=== PATIENT | male | born 1955 | race Two or more races ===

== ENCOUNTER 2021-05-15 18:12 | Emergency (ER) | payer SELFPAY ==
--- NOTE | 2021-05-15 18:53 | EDM.PDOC ---
<Jose M Rizo - Last Filed: 05/15/21 18:53> ED HPI GENERAL MEDICAL PROBLEM - General Chief Complaint: Fever Stated Complaint: FEVER Time Seen by Provider: 05/15/21 18:16 - History of Present Illness INITIAL COMMENTS - FREE TEXT/NARRATIVE: CHIEF COMPLAINT(S): Fever HISTORY OF PRESENT ILLNESS: This is a 66-year-old man with a past medical history of hypertension and hyperlipidemia who comes to the emergency department with a chief complaint of fever. The patient presents with daughter at bedside. The patient is from [place]. She states for the last 4 days he has been experiencing a fever with the last 1 being 104. She states they have been giving Tylenol and it does seem to calm down. She states that when the Tylenol has slowed down after 6 hours that he does get the fever again and chills. The patient denies any chest pain, shortness of breath, abdominal pain, nausea or vomiting. He denies any headache, blurry vision, ear pain, sore throat but states he does have some nasal congestion. He did have his first coronavirus vaccine approximately 10 days ago. He denies any lower extremity edema. He denies any prior history of DVT or PE. He states that he does have a history of urinary tract infection and kidney disease however he is not experiencing any symptoms similar to last time. He denies any dysuria, hematuria. He denies any penile discharge or testicular pain. REVIEW OF SYSTEMS: Constitutional: Positive for fever and chills Eyes: Denies eye pain Ears, Nose, Mouth, & Throat: Positive for sinus congestion. Denies earache, sore throat Cardiovascular: Denies chest pain Respiratory: Denies shortness of breath Gastrointestinal: Denies abdominal pain, nausea, vomiting, diarrhea, hematochezia. Genitourinary: Denies hematuria dysuria, penile discharge, testicular pain Skin:Denies a rash MSK: Denies joint pain Neurological: Denies blurred vision, numbness, tingling, weakness Psychiatric: Denies depression PAST MEDICAL HISTORY: As per history of present illness and as reviewed below otherwise noncontributory. SURGICAL HISTORY: As per history of present illness and as reviewed below otherwise noncontributory. SOCIAL HISTORY: As per history of present illness and as reviewed below otherwise noncontributory. FAMILY HISTORY: As per history of present illness and as reviewed below otherwise noncontributory. EXAMINATION OF ORGAN SYSTEMS/BODY AREAS: Constitutional: Blood pressure is 127/76, heart rate 7087, respiratory rate 18 with an oxygen saturation 96% on room air. Temperature 37.8 orally General: Overall well-appearing elderly man who is in no acute distress Psychiatric: Appropriate mood and affect. Eyes: No scleral icterus or conjunctival erythema ENMT: Moist mucous membranes. No pharyngeal erythema bilateral tympanic membranes without any erythema or bulging. Bilateral nasal turbinates clear. There is no tonsillar exudates or swelling. No stridor. Cardiovascular: Regular, rate, and rhythm. No gallops, murmurs, or rubs. B ilateral upper extremity pulses symmetric and intact. No peripheral edema. No JVD. Respiratory: Lungs clear to auscultation bilaterally. No wheezes, rales, or rhonchi. Gastrointestinal: Soft, non-tender, non-distended. Normoactive bowel sounds Genitourinary: No suprapubic tenderness Musculoskeletal: Normal range of motion. Skin: No lesions or abrasions. Neurological: Alert, GCS 15 MEDICAL DECISION MAKING AND COURSE IN THE ED WITH INTERPRETATION/REVIEW OF DIAGNOSTIC STUDIES: This is a 66-year-old man with a past medical history of hypertension hyperlipidemia who comes to the emergency department with fever that is responding to Tylenol with some sinus congestion who overall appears well and has normal vital signs. At this time it is uncertain as to what is causing the patient's fever however we will obtain work-up including CBC, CMP, magnesium. We will swab the patient for Covid, flu and RSV. We will obtain a urinalysis given his history of urinary tract infection and obtain a chest x-ray to evaluate for pneumonia. Patient is currently denying any pain and overall appears well so we will hold off on medication at this time. At the time of signout the patient's labs, x-ray and urinalysis were pending. Final disposition pending labs and further work-up. DISPOSITION: [facility] CONDITION: Fair PROCEDURES: None FINAL IMPRESSION(S)/DIAGNOSES: 1. Acute fever Jose M Rizo M.D. - Related Data Allergies Allergy/AdvReac Type Severity Reaction Status Date / Time No Known Allergies Allergy Verified 05/15/21 18:33 Home Meds: Home Meds Aspirin 81 mg PO DAILY 05/15/21 [History] Enalapril Maleate 10 mg PO DAILY 05/15/21 [History] Ibuprofen [Motrin] 400 mg PO Q6H PRN #28 tab 05/15/21 [Rx] Pantoprazole Sodium [Protonix] 40 mg PO DAILY #14 tablet. 05/15/21 [Rx] atorvaSTATin Calcium [Lipitor] 40 mg PO DAILY 05/15/21 [History] Past Medical History Cardiovascular History: Reports: High Cholesterol, Hypertension - Infectious Disease History Infectious Disease History: Reports: None Social & Family History - Family History Family Medical History: No Pertinent Family History - Tobacco Use Tobacco Use Status *Q: Never Tobacco User - Caffeine Use Caffeine Use: Reports: None - Recreational Drug Use Recreational Drug Use: No ED ROS GENERAL - Review of Systems Review Of Systems: See Below ED EXAM, GENERAL - Physical Exam Exam: See Below Departure - Departure Disposition: Home, Self-Care 01 Clinical Impression: COVID-19 - Discharge Information Prescriptions: Pantoprazole Sodium [Protonix] 40 mg PO DAILY #14 tablet. Instructions: COVID-19: How to Protect Yourself and Others - CDC, COVID-19 Frequently Asked Questions Referrals: PCP,None [Primary Care Provider] - Forms: ED Department Discharge Additional Instructions: Your COVID-19 test is positive. The rest of your lab work looks good. I would recommend taking Tylenol (acetaminophen) 1000mg every 4 hours as needed to help control your fever. This is safe to take with Motrin (ibuprofen) 400 mg every 6 hours as needed to help control your fever and body aches. Motrin was sent to your pharmacy. I also sent a prescription for a medication called Protonix which can help with the stomach pains that you are having likely secondary to the medication use and Covid infection. If you develop worsening shortness of breath or if your oxygen saturations are persistently below 90% then you should come back to the hospital for reassess ment. You should quarantine for the next 6 days (total of 10 days from symptom onset) as long as your fever has broken by the end of this time. Connolly prueba de COVID-19 es positiva. El jacqueline de connolly trabajo de laboratorio se ve jose. Recomendara brenda 1000 mg de Tylenol (acetaminofn) cada 4 horas segn sea necesario para ayudar a controlar la fiebre. Es seguro tomarlo con Motrin (ibuprofeno) 400 mg cada 6 horas segn sea necesario para ayudar a controlar la fiebre y los ian corporales. Motrin fue enviado a connolly farmacia. Tambin envi puma receta para un medicamento llamado Protonix que puede ayudar con los ian de estmago que probablemente tiene karol consecuencia del uso de medicamentos y la infeccin por Covid. Si presenta un empeoramiento de la dificultad para respirar o si naheed saturaciones de oxgeno son persistentemente por debajo del 90%, debe regresar al hospital para puma nueva evaluacin. Debe ponerse en cuarentena lj los prximos 6 flores (un total de 10 flores desde el inicio de los sntomas) siempre que connolly fiebre haya desaparecido al final de shabnam tiempo. ([place] se tradujo con el traductor de [employer] y puede contener errores, lo siento!) You should still get the second dose of Covid vaccination as long as you are well by the time it is scheduled. If you are still feeling sick then consult with a physician before getting the second dose of vaccination. The fact that you have the first dose of vaccination will help your body fight this infection. The following information is given to patients seen in the emergency department who are being discharged to home. This information is to outline your options for follow-up care. We provide all patients seen in our emergency department wit h a follow-up referral. The need for follow-up, as well as the timing and circumstances, are variable depending upon the specifics of your emergency department visit. If you don't have a primary care physician on staff, we will provide you with a referral. We always advise you to contact your personal physician following an emergency department visit to inform them of the circumstance of the visit and for follow-up with them and/or the need for any referrals to a consulting specialist. The emergency department will also refer you to a specialist when appropriate. This referral assures that you have the opportunity for follow-up care with a specialist. All of these measure are taken in an effort to provide you with optimal care, which includes your follow-up. Under all circumstances we always encourage you to contact your private physician who remains a resource for coordinating your care. When calling for follow-up care, please make the office aware that this follow-up is from your recent emergency room visit. If for any reason you are refused follow-up, please contact the [facility] Emergency Department at and asked to speak to the emergency department charge nurse. Please follow up with your primary care physician. If you do not have a primary care physician, see below: [facility] [address] [place] [id number] [facility] [address] [place] [id number] [facility] [address] [place] [id number] Sepsis Event Note (ED) - Evaluation Sepsis Screening Result: No Definite Risk <Nick Petersen - Last Filed: 05/15/21 19:52> Course - Vital Signs Last Recorded V/S: Last Vital Signs Temp 100.1 F 05/15/21 18:27 Pulse 87 05/15/21 18:27 Resp 18 05/15/21 18:27 BP 127/76 05/15/21 18:27 Pulse Ox 96 05/15/21 18:27 - Orders/Labs/Meds Labs: Laboratory Tests 05/15/21 05/15/21 05/15/21 Range/Units 18:37 18:37 18:40 WBC 3.57 L (4.0-11.0) K/uL RBC 4.52 (4.50-5.90) M/uL Hgb 13.5 (13.0-17.0) g/dL Hct 39.0 (38.0-50.0) % MCV 86.3 (80.0-98.0) fL MCH 29.9 (27.0-32.0) pg MCHC 34.6 (31.0-37.0) g/dL RDW Std Deviation 41.2 (28.0-62.0) fl RDW Coeff of Thien 13 (11.0-15.0) % Plt Count 134 L (150-400) K/uL MPV 10.10 (7.40-12.00) fL Neut % (Auto) 68.9 (48.0-80.0) % Lymph % (Auto) 22.7 (16.0-40.0) % [place] % (Auto) 7.8 (0.0-15.0) % Eos % (Auto) 0.3 (0.0-7.0) % Baso % (Auto) 0.3 (0.0-1.5) % Neut # (Auto) 2.5 (1.4-5.7) K/uL Lymph # (Auto) 0.8 (0.6-2.4) K/uL [place] # (Auto) 0.3 (0.0-0.8) K/uL Eos # (Auto) 0.0 (0.0-0.7) K/uL Baso # (Auto) 0.0 (0.0-0.1) K/uL Nucleated RBC % 0.0 /100WBC Nucleated RBCs # 0 K/uL Sodium 142 (136-148) mmol/L Potassium 3.9 (3.5-5.1) mmol/L Chloride 105 (98-107) mmol/L Carbon Dioxide 24.1 (21.0-32.0) mmol/L BUN 25 H (7.0-18.0) mg/dL Creatinine 1.5 H (0.8-1.3) mg/dL Est Cr Clr Drug Dosing 49.99 mL/min Estimated GFR (MDRD) 46.5 ml/min Glucose 113 H (74-106) mg/dL Calcium 8.4 L (8.5-10.1) mg/dL Magnesium 1.9 (1.8-2.4) mg/dL Total Bilirubin 0.3 (0.2-1.0) mg/dL AST 38 H (15-37) IU/L ALT 50 (14-63) IU/L Alkaline Phosphatase 68 (46-116) U/L Total Protein 7.6 (6.4-8.2) g/dL Albumin 3.6 (3.4-5.0) g/dL Globulin 4.0 (2.6-4.0) g/dL Albumin/Globulin Ratio 0.9 (0.9-1.6) Urine Color YELLOW Urine Appearance CLEAR Urine pH 5.5 (5.0-8.0) Ur Specific [place] >= 1.030 (1.001-1.035) Urine Protein TRACE H (NEGATIVE) mg/dL Urine Glucose (UA) NEGATIVE (NEGATIVE) mg/dL Urine Ketones NEGATIVE (NEGATIVE) mg/dL Urine Occult Blood NEGATIVE (NEGATIVE) Urine Nitrite NEGATIVE (NEGATIVE) Urine Bilirubin NEGATIVE (NEGATIVE) Urine Urobilinogen 0.2 (<2.0) EU/dL Ur Leukocyte Esterase NEGATIVE (NEGATIVE) U Hyaline Cast (Auto) 0-1 (0-2/LPF) Urine RBC 0-1 (0-2/HPF) Urine WBC 0-2 (0-5/HPF) Ur Epithelial Cells RARE (NONE-FEW) Urine Bacteria RARE (NEGATIVE) Urine Sperm OCCASIONAL (NEGATIVE) Influenza Type A RNA (NEGATIVE) RSV RNA (INAAT) (NEGATIVE) Influenza Type B RNA (NEGATIVE) SARS-CoV-2 RNA (EDITH) (NEGATIVE) 05/15/21 Range/Units 18:50 WBC (4.0-11.0) K/uL RBC (4.50-5.90) M/uL Hgb (13.0-17.0) g/dL Hct (38.0-50.0) % MCV (80.0-98.0) fL MCH (27.0-32.0) pg MCHC (31.0-37.0) g/dL RDW Std Deviation (28.0-62.0) fl RDW Coeff of Thien (11.0-15.0) % Plt Count (150-400) K/uL MPV (7.40-12.00) fL Neut % (Auto) (48.0-80.0) % Lymph % (Auto) (16.0-40.0) % [place] % (Auto) (0.0-15.0) % Eos % (Auto) (0.0-7.0) % Baso % (Auto) (0.0-1.5) % Neut # (Auto) (1.4-5.7) K/uL Lymph # (Auto) (0.6-2.4) K/uL [place] # (Auto) (0.0-0.8) K/uL Eos # (Auto) (0.0-0.7) K/uL Baso # (Auto) (0.0-0.1) K/uL Nucleated RBC % /100WBC Nucleated RBCs # K/uL Sodium (136-148) mmol/L Potassium (3.5-5.1) mmol/L Chloride (98-107) mmol/L Carbon Dioxide (21.0-32.0) mmol/L BUN (7.0-18.0) mg/dL Creatinine (0.8-1.3) mg/dL Est Cr Clr Drug Dosing mL/min Estimated GFR (MDRD) ml/min Glucose (74-106) mg/dL Calcium (8.5-10.1) mg/dL Magnesium (1.8-2.4) mg/dL Total Bilirubin (0.2-1.0) mg/dL AST (15-37) IU/L ALT (14-63) IU/L Alkaline Phosphatase (46-116) U/L Total Protein (6.4-8.2) g/dL Albumin (3.4-5.0) g/dL Globulin (2.6-4.0) g/dL Albumin/Globulin Ratio (0.9-1.6) Urine Color Urine Appearance Urine pH (5.0-8.0) Ur Specific [place] (1.001-1.035) Urine Protein (NEGATIVE) mg/dL Urine Glucose (UA) (NEGATIVE) mg/dL Urine Ketones (NEGATIVE) mg/dL Urine Occult Blood (NEGATIVE) Urine Nitrite (NEGATIVE) Urine Bilirubin (NEGATIVE) Urine Urobilinogen (<2.0) EU/dL Ur Leukocyte Esterase (NEGATIVE) U Hyaline Cast (Auto) (0-2/LPF) Urine RBC (0-2/HPF) Urine WBC (0-5/HPF) Ur Epithelial Cells (NONE-FEW) Urine Bacteria (NEGATIVE) Urine Sperm (NEGATIVE) Influenza Type A RNA NEGATIVE (NEGATIVE) RSV RNA (INAAT) NEGATIVE (NEGATIVE) Influenza Type B RNA NEGATIVE (NEGATIVE) SARS-CoV-2 RNA (EDITH) POSITIVE H (NEGATIVE) - Re-Assessments/Exams Free Text/Narrative Re-Assessment/Exam: 05/15/21 19:46 Patient's COVID-19 test is positive. Patient is complaining of some stomach irritation secondary to the Tylenol and Motrin that has been taking so I will give him a 2-week course of Protonix for GI prophylaxis. Discussed return precautions at length. Departure - Departure Time of Disposition: 19:46 Condition: Good Sepsis Event Note (ED) - Focused Exam Vital Signs: Vital Signs Temp Pulse Resp BP Pulse Ox 05/15/21 18:27 100.1 F 87 18 127/76 96
[2021-05-15 19:04] LABS: CARBON DIOXIDE,CO2 24.1 mmol/L (21.0-32.0); POTASSIUM,K 3.9 mmol/L (3.5-5.1)
--- NOTE | 2021-05-15 19:11 | CR ---
INDICATION: Fever TECHNIQUE: Chest radiograph 1 view COMPARISON: None FINDINGS: Mediastinum: The mediastinum is normal in appearance. The heart silhouette is normal in size and morphology. Lung: Ground-glass opacities are present within the right midlung zone. No sign of pleural effusion seen. No pneumothorax is identified. Bone and Soft tissue: Unremarkable for age. IMPRESSION: 1. Ground-glass opacities are present within the right midlung zone. Clinical correlation is recommended to exclude atypical pneumonia. Dictated by Louie Pickens MD @ 05/15/2021 7:10:14 PM Dictated by: Louie Pickens MD @ 05/15/2021 19:10:18 (Electronically Signed)
[2021-05-15 19:33] LABS: CORONAVIRUS COVID-19 NAA POSITIVE (NEGATIVE); INFLUENZA A NAA NEGATIVE (NEGATIVE); INFLUENZA B NAA NEGATIVE (NEGATIVE); RESPIRATORY SYNCYTIAL VIR NAA NEGATIVE (NEGATIVE)
== END 2021-05-15 19:53 | disposition home or self-care (01) ==
LOC: MW.ED 18:12
DX: U07.1 COVID-19 (principal); I10 Essential (primary) hypertension; E78.5 Hyperlipidemia, unspecified; Z79.899 Other long term (current) drug therapy; Z79.82 Long term (current) use of aspirin
CPT/HCPCS: 0241U; 36415; 71045; 80053; 81001; 83735; 85025; 99283

== ENCOUNTER 2021-05-19 22:18 | Emergency (ER) | payer SELFPAY ==
[2021-05-19] MEDS ORDERED: Sodium Chloride 0.9% 2.5 ML Syringe FLUSH PRN (22:38)
[2021-05-19] MEDS ORDERED: Sodium Chloride 0.9% 10 ML Syringe FLUSH PRN (22:38)
[2021-05-19] MEDS ORDERED: Sodium Chloride 0.9% 1,000 ML IV ONE (22:39)
--- NOTE | 2021-05-19 22:40 | EDM.PDOC ---
ED HPI GENERAL MEDICAL PROBLEM - General Stated Complaint: COVID POSITIVE Time Seen by Provider: 05/19/21 22:40 - History of Present Illness INITIAL COMMENTS - FREE TEXT/NARRATIVE: History of present illness: [] This patient was seen by my partner 15 May 2021. He had suffered 4 days of fever. He was diagnosed with a COVID-19 infection and discharged home. He is from [place] and was here with his daughter. He has increased increasing weakness since he was seen here. He cannot tolerate walking very far before he gets short of breath and feels very tired. His oxygen saturation on their own portable monitor drops to 88 after he has exertion and gets tired. He has no headache and no increased cough but he does have bone pain. Review of systems: As per history of present illness and below otherwise all systems reviewed and negative. Past medical history: As per history of present illness and as reviewed below otherwise noncontributory. Surgical history: As per history of present illness and as reviewed below otherwise noncontribut ory. Social history: No reported history of drug or alcohol abuse. Family history: As per history of present illness and as reviewed below otherwise noncontributory. Physical exam: Constitutional - well developed, well-nourished and in no acute distress HEENT - normocephalic, no evidence of trauma - external nose and mouth normal - no mass in neck and no JVD - mucosae moist EYES - full EOM, PERRL, no icterus - no evidence of inflammation, injection, or drainage Respiratory - no respiratory distress, equal bilateral expansion, lungs clear to auscultation and no abnormal lung sounds Cardiovascular - Regular Rhythm with S1 and S2 appreciated and no murmur, gallop or rub. GI - abdomen soft without distension or organomegaly - normal bowel sounds - no guard or rebound Musculoskeletal no gross deformity of long bones or joints - no tenderness, swelling or edema Neurologic - Alert and oriented times four - CN II-XII grossly intact - motor sensory and coordination symmetrically normal Psychiatric - appropriate mood and affect with normal thought content Hematologic - No petechiae or purpura - mucosa appropriate color and sclera not pale - normal nail bed color and refill Integument - no rash or evidence of trauma - normal turgor Diagnostics: [] Therapeutics: [] Impression: [] Plan: [] Definitive disposition and diagnosis as appropriate pending reevaluation and review of above. - Related Data Allergies Allergy/AdvReac Type Severity Reaction Status Date / Time No Known Allergies Allergy Verified 05/19/21 22:28 Home Meds: Home Meds Aspirin 81 mg PO DAILY 05/15/21 [History] Enalapril Maleate 10 mg PO DAILY 05/15/21 [History] Ibuprofen [Motrin] 400 mg PO Q6H PRN #28 tab 05/15/21 [Rx] Pantoprazole Sodium [Protonix] 40 mg PO DAILY #14 tablet. 05/15/21 [Rx] atorvaSTATin Calcium [Lipitor] 40 mg PO DAILY 05/15/21 [History] Albuterol Sulfate [Albuterol Sulfate HFA] 8.5 gm INH Q4H PRN #1 inhaler 05/20/21 [Rx] predniSONE [Prednisone] 40 mg PO DAILY 7 Days #14 tablet 05/20/21 [Rx] Past Medical History Cardiovascular History: Reports: High Cholesterol, Hypertension - Infectious Disease History Infectious Disease History: Reports: None Social & Family History - Family History Family Medical History: No Pertinent Family History - Tobacco Use Tobacco Use Status *Q: Never Tobacco User - Caffeine Use Caffeine Use: Reports: None - Recreational Drug Use Recreational Drug Use: No ED ROS GENERAL - Review of Systems Review Of Systems: Comprehensive ROS is negative, except as noted in HPI. ED EXAM, GENERAL - Physical Exam Exam: See Below Free Text/Narrative:: My physical exam is in the HPI #1 Interpretation EKG Interpretation Comments: KG sinus rhythm heart rate 71 [place] XIX. RI interval 148 QT duration 463. Baseline wander makes interpretation less than ideal however QRS ST and T are essentially normal no prior for comparison. Impression normal EKG Course - Vital Signs Text/Narrative:: Consultation with my internal medicine doctor reproduction artist we felt the patient did not at this point qualify for a full admission and would probably not improve in 24 hours and be able to go home as an observation. We thought he would benefit from short course of steroids because of his documented 88% saturation at home. We also wanted to initiate bronchodilator treatment and have an antibody infusion in the morning. 00 50 hours patient is improved and saturation 94%. Last Recorded V/S: Last Vital Signs Temp 36.8 C 05/19/21 22:29 Pulse 74 05/20/21 00:36 Resp 20 05/20/21 00:36 BP 159/87 H 05/20/21 00:36 Pulse Ox 94 L 05/20/21 00:36 - Orders/Labs/Meds Orders: Active Orders 24 hr Category Date Time Status EKG 12 Lead [EKG Documentation Completion] [RC] STAT Care 05/19/21 22:52 Active Sodium Chloride 0.9% [Saline Flush] Med 05/19/21 22:38 Active 10 ml FLUSH ASDIRECTED PRN Sodium Chloride 0.9% [Saline Flush] Med 05/19/21 22:38 Active 2.5 ml FLUSH ASDIRECTED PRN Saline Lock Insert [OM.PC] Stat Oth 05/19/21 22:38 Ordered Medication Orders Sodium Chloride (Sodium Chloride 0.9% 10 Ml Syringe) 10 ml FLUSH ASDIRECTED PRN PRN Reason: Keep Vein Open Sodium Chloride (Sodium Chloride 0.9% 2.5 Ml Syringe) 2.5 ml FLUSH ASDIRECTED PRN PRN Reason: Keep Vein Open Labs: Laboratory Tests 05/19/21 05/19/21 05/19/21 Range/Units 22:50 22:50 22:50 WBC 5.92 (4.0-11.0) K/uL RBC 4.17 L (4.50-5.90) M/uL Hgb 12.4 L (13.0-17.0) g/dL Hct 35.9 L (38.0-50.0) % MCV 86.1 (80.0-98.0) fL MCH 29.7 (27.0-32.0) pg MCHC 34.5 (31.0-37.0) g/dL RDW Std Deviation 42.0 (28.0-62.0) fl RDW Coeff of Thien 13 (11.0-15.0) % Plt Count 208 (150-400) K/uL MPV 10.10 (7.40-12.00) fL Neut % (Auto) 79.6 (48.0-80.0) % Lymph % (Auto) 12.8 L (16.0-40.0) % [place] % (Auto) 6.4 (0.0-15.0) % Eos % (Auto) 1.0 (0.0-7.0) % Baso % (Auto) 0.2 (0.0-1.5) % Neut # (Auto) 4.7 (1.4-5.7) K/uL Lymph # (Auto) 0.8 (0.6-2.4) K/uL [place] # (Auto) 0.4 (0.0-0.8) K/uL Eos # (Auto) 0.1 (0.0-0.7) K/uL Baso # (Auto) 0.0 (0.0-0.1) K/uL Nucleated RBC % 0.0 /100WBC Nucleated RBCs # 0 K/uL Sodium 139 (136-148) mmol/L Potassium 3.7 (3.5-5.1) mmol/L Chloride 105 (98-107) mmol/L Carbon Dioxide 19.9 L (21.0-32.0) mmol/L BUN 18 (7.0-18.0) mg/dL Creatinine 1.4 H (0.8-1.3) mg/dL Est Cr Clr Drug Dosing 45.57 mL/min Estimated GFR (MDRD) 50.4 ml/min Glucose 153 H (74-106) mg/dL Calcium 7.9 L (8.5-10.1) mg/dL Magnesium 2.0 (1.8-2.4) mg/dL Total Bilirubin 0.4 (0.2-1.0) mg/dL AST 62 H (15-37) IU/L ALT 59 (14-63) IU/L Alkaline Phosphatase 114 (46-116) U/L Troponin I < 0.050 (0.000-0.056) ng/mL Total Protein 7.0 (6.4-8.2) g/dL Albumin 2.6 L (3.4-5.0) g/dL Globulin 4.4 H (2.6-4.0) g/dL Albumin/Globulin Ratio 0.6 L (0.9-1.6) Meds: Medications Generic Name Dose Route Start Last Admin Trade Name Freq PRN Reason Stop Dose Admin Sodium Chloride 10 ml 05/19/21 22:38 Sodium Chloride 0.9% 10 Ml Syringe FLUSH ASDIRECTED PRN Keep Vein Open Sodium Chloride 2.5 ml 05/19/21 22:38 Sodium Chloride 0.9% 2.5 Ml Syringe FLUSH ASDIRECTED PRN Keep Vein Open Discontinued Medications Generic Name Dose Route Start Last Admin Trade Name Freq PRN Reason Stop Dose Admin Albuterol Confirm 05/20/21 00:17 05/20/21 00:20 Albuterol 8 Gm Inhaler Administered 05/20/21 00:18 2 inh Dose Administration 8 gm INH .STK-MED ONE Sodium Chloride 1,000 mls @ 1,000 mls/hr 05/19/21 22:39 05/19/21 22:52 Normal Saline IV 05/19/21 23:38 1,000 mls/hr .Bolus ONE Administration Prednisone 40 mg 05/20/21 00:13 05/20/21 00:20 Prednisone 20 Mg Tab PO 05/20/21 00:14 40 mg STAT STA Administration Departure - Departure Time of Disposition: 00:50 Disposition: Home, Self-Care 01 Condition: Good Clinical Impression: Pneumonia due to COVID-19 virus - Discharge Information Prescriptions: Albuterol Sulfate [Albuterol Sulfate HFA] 8.5 gm INH Q4H PRN #1 inhaler PRN Reason: Shortness Of Breath predniSONE [Prednisone] 40 mg PO DAILY 7 Days #14 tablet Instructions: COVID-19 Frequently Asked Questions, 10 Things You Can Do to Manage Your COVID-19 Symptoms at Home - [facility] Referrals: PCP,None [Primary Care Provider] - Forms: ED Department Discharge Additional Instructions: Come tomorrow to have the antibody infusion. If you are more short of breath come back and let us check your oxygen. If your oxygen on our monitors maintain below 90% you may qualify for oxygen or need admission. Use inhaler as needed and take the several days of steroids as suggested. That was sent to your pharmacy. [facility] - Primary Care [address] [place] [id number] [id number] The following information is given to patients seen in the emergency department who are being discharged to home. This information is to outline your options for follow-up care. We provide all patients seen in our emergency department with a follow-up referral. The need for follow-up, as well as the timing and circumstances, are variable depending upon the specifics of your emergency department visit. If you don't have a primary care physician on staff, we will provide you with a referral. We always advise you to contact your personal physician following an emergency department visit to inform them of the circumstance of the visit and for follow-up with them and/or the need for any referrals to a consulting specialist. The emergency department will also refer you to a specialist when appropriate. This referral assures that you have the opportunity for follow-up care with a specialist. All of these measure are taken in an effort to provide you with optimal care, which includes your follow-up. Under all circumstances we always encourage you to contact your private physician who remains a resource for coordinating your care. When calling for follow-up care, please make the office aware that this follow-up is from your recent emergency room visit. If for any reason you are refused follow-up, please contact the [facility] Emergency Department at and asked to speak to the emergency department charge nurse. Sepsis Event Note (ED) - Evaluation Sepsis Screening Result: No Definite Risk - Focused Exam Vital Signs: Vital Signs Temp Pulse Resp BP Pulse Ox 05/20/21 00:36 74 20 159/87 H 94 L 05/19/21 23:30 92 20 147/80 H 92 L 05/19/21 22:29 36.8 C 78 19 156/80 H 93 L - My Orders Last 24 Hours: My Active Orders 05/19/21 22:38 Sodium Chloride 0.9% [Saline Flush] 10 ml FLUSH ASDIRECTED PRN Sodium Chloride 0.9% [Saline Flush] 2.5 ml FLUSH ASDIRECTED PRN Saline Lock Insert [OM.PC] Stat 05/19/21 22:52 EKG 12 Lead [EKG Documentation Completion] [RC] STAT - Assessment/Plan Last 24 Hours: My Active Orders 05/19/21 22:38 Sodium Chloride 0.9% [Saline Flush] 10 ml FLUSH ASDIRECTED PRN Sodium Chloride 0.9% [Saline Flush] 2.5 ml FLUSH ASDIRECTED PRN Saline Lock Insert [OM.PC] Stat 05/19/21 22:52 EKG 12 Lead [EKG Documentation Completion] [RC] STAT
[2021-05-19 23:22] LABS: CARBON DIOXIDE,CO2 19.9 mmol/L (21.0-32.0); POTASSIUM,K 3.7 mmol/L (3.5-5.1)
--- NOTE | 2021-05-19 23:51 | CR ---
INDICATION: COVID-19, dyspnea TECHNIQUE: Chest radiograph 1 view COMPARISON: 05/15/2021 FINDINGS: Mediastinum: The mediastinum is normal in appearance. The heart silhouette is normal in size and morphology. Lung: Mild ground-glass opacity is present in the midlung zones and right lung base. No sign of pleural effusion seen. No pneumothorax is identified. Bone and Soft tissue: Unremarkable for age. IMPRESSION: 1. Mild ground-glass opacity is present in the midlung zones and right lung base. Findings may be due to the patient`s COVID-19 infection. Dictated by Louie Pickens MD @ 05/19/2021 11:49:03 PM Dictated by: Louie Pickens MD @ 05/19/2021 23:49:07 (Electronically Signed)
[2021-05-20] MEDS ORDERED: predniSONE 20 MG Tab PO STA (00:13)
[2021-05-20] MEDS ORDERED: Albuterol 8 GM Inhaler INH ONE (00:17)
== END 2021-05-20 01:00 | disposition home or self-care (01) ==
LOC: MW.ED 22:18
DX: U07.1 COVID-19 (principal); J12.82 Pneumonia due to coronavirus disease 2019; E78.00 Pure hypercholesterolemia, unspecified; I10 Essential (primary) hypertension; Z79.899 Other long term (current) drug therapy; Z79.82 Long term (current) use of aspirin
CPT/HCPCS: 36415; 71045; 80053; 83735; 84484; 85025; 93005; 99285; A9270; J7030

== ENCOUNTER 2021-05-24 14:43 | Emergency (ER) | payer SELFPAY ==
[2021-05-24] MEDS ORDERED: Sodium Chloride 0.9% 2.5 ML Syringe FLUSH PRN (15:13)
[2021-05-24] MEDS ORDERED: Sodium Chloride 0.9% 10 ML Syringe FLUSH PRN (15:13)
--- NOTE | 2021-05-24 15:49 | EDM.PDOC ---
ED HPI GENERAL MEDICAL PROBLEM - General Chief Complaint: Respiratory Problem Stated Complaint: SPITTING UP BLOOD WHEN HE COUGH Time Seen by Provider: 05/24/21 15:06 - History of Present Illness INITIAL COMMENTS - FREE TEXT/NARRATIVE: HISTORY AND PHYSICAL: History of present illness: This is a 66-year-old gentleman with a history significant for hypertension, hyperlipidemia, recent diagnosis of Covid approximately 9 days ago with symptom onset approximately 14 days ago, who presents to the ER today secondary to hemoptysis x4 days. Patient's daughter is here assisting with translation reports that while he is sleeping he will sometimes cough and small blood clot will come up that is not the consistency of saliva. Patient reports that at this time he is not coughing up any blood. Patient denies any recent fevers, shakes, chills, nausea, vomiting, diarrhea, dysuria, frequency, urgency. Patient reports he is got generalized weakness, fatigue, shortness of breath since his diagnosis of Covid. Daughter reports that he gets markedly short of breath whenever he walks to the bathroom. She denies any lower extremity edema or asymmetry to his lower extremities. Patient denies any chest pain or abdominal discomfort. Patient reports that he was discharged from the ED approximately 10 days ago with a prescription for prednisone and albuterol MDIs which she is utilizing. Review of systems: As per history of present illness and below otherwise all systems reviewed and negative. Past medical history: As per history of present illness and as reviewed below otherwise noncontributory. Surgical history: As per history of present illness and as reviewed below otherwise noncontributory. Social history: No reported history of drug abuse. Family history: As per history of present illness and as reviewed below otherwise noncontributory. Physical exam: This patient was seen and evaluated during the 2019 SARS-CoV-2 novel coronavirus pandemic period. Community viral transmission is ongoing at time of this encounter and the emergency department is operating under pandemic response procedures. Constitutional: Patient is oriented to person, place, and time. Appears well- developed and well-nourished. No distress. HEENT: Moist mucous membranes Head: Normocephalic and atraumatic Eyes: Right eye exhibits no discharge. Left eye exhibits no discharge. No scleral icterus Neck: Normal range of motion. No tracheal deviation present. Cardiovascular: Normal rate and regular rhythm. Pulmonary: Effort normal, no respiratory distress. Clear without any wheezing rales or rhonchi. Patient without a palpable RV heave or split S2. Patient has no lower extremity edema and has a negative Homans' sign. Abdominal: No distention Musculoskeletal: Normal range of motion Neurologic: Alert and oriented to person, place and time. Skin: [place], warm and dry. Psychiatric: Normal mood and affect. Behavior is normal. Judgment and thought content normal. Nursing note and vital signs have been reviewed Diagnostics: CTA of thorax does not reveal any evidence of PE, AVMs or other bleeding problems. No tumor is identified. Patient does have bilateral increased interstitial markings consistent with Covid Labs within normal limits Therapeutics: Assessment and plan: 66-year-old gentleman who presents ER today secondary hemoptysis. Patient has been monitored here in the ED for approximately 3 hours and has not had any further episodes of hemoptysis here in the ED. A CT scan of the chest was obtained to rule out PE or other bleeding issues such as tumors AVMs or inflammation in the lungs. Patient CTA was unremarkable. Patient's labs are all unremarkable. Patient has been sitting comfortably in bed without any complaints. Patient will be discharged home with instructions to follow-up with a primary care physician. Reassessment at the time of disposition demonstrates that the patient is in no acute distress. The patient has remained stable throughout the entire ED visit and is without objective evidence for acute process requiring urgent intervention or hospitalization. The patient is stable for discharge, counseling is provided as documented above, discussed symptomatic treatment and specific conditions for return. I have spoken with the patient/caregiver and discussed todays findings, in addition to providing specific details for the plan of care. Questions are answered and there is agreement with the plan. Definitive disposition and diagnosis as appropriate pending reevaluation and review of above. - Related Data Allergies Allergy/AdvReac Type Severity Reaction Status Date / Time No Known Allergies Allergy Verified 05/24/21 15:01 Home Meds: Home Meds Aspirin 81 mg PO DAILY 05/15/21 [History] Enalapril Maleate 10 mg PO DAILY 05/15/21 [History] Ibuprofen [Motrin] 400 mg PO Q6H PRN #28 tab 05/15/21 [Rx] Pantoprazole Sodium [Protonix] 40 mg PO DAILY #14 05/15/21 [Rx] atorvaSTATin Calcium [Lipitor] 40 mg PO DAILY 05/15/21 [History] Albuterol Sulfate [Albuterol Sulfate HFA] 8.5 gm INH Q4H PRN #1 inhaler 05/20/21 [Rx] predniSONE [Prednisone] 40 mg PO DAILY 7 Days #14 tablet 05/20/21 [Rx] Past Medical History Cardiovascular History: Reports: High Cholesterol, Hypertension - Infectious Disease History Infectious Disease History: Reports: Novel Coronavirus - Past Surgical History GI Surgical History: Reports: Cholecystectomy Social & Family History - Family History Family Medical History: No Pertinent Family History - Tobacco Use Tobacco Use Status *Q: Never Tobacco User - Caffeine Use Caffeine Use: Reports: None - Recreational Drug Use Recreational Drug Use: No ED ROS GENERAL - Review of Systems Review Of Systems: See Below ED EXAM, GENERAL - Physical Exam Exam: See Below Course - Vital Signs Last Recorded V/S: Last Vital Signs Temp 97.6 F 05/24/21 14:56 Pulse 70 05/24/21 17:12 Resp 16 05/24/21 17:12 BP 152/72 H 05/24/21 17:12 Pulse Ox 94 L 05/24/21 17:12 - Orders/Labs/Meds Orders: Active Orders 24 hr Category Date Time Status Sodium Chloride 0.9% [Saline Flush] Med 05/24/21 15:13 Active 10 ml FLUSH ASDIRECTED PRN Sodium Chloride 0.9% [Saline Flush] Med 05/24/21 15:13 Active 2.5 ml FLUSH ASDIRECTED PRN Saline Lock Insert [OM.PC] Stat Oth 05/24/21 15:13 Ordered Medication Orders Sodium Chloride (Sodium Chloride 0.9% 10 Ml Syringe) 10 ml FLUSH ASDIRECTED PRN PRN Reason: Keep Vein Open Last Admin: 05/24/21 15:27 Dose: 10 ml Documented by: SEBAS Sodium Chloride (Sodium Chloride 0.9% 2.5 Ml Syringe) 2.5 ml FLUSH ASDIRECTED PRN PRN Reason: Keep Vein Open Last Admin: 05/24/21 15:27 Dose: 2.5 ml Documented by: SEBAS Labs: Laboratory Tests 05/24/21 05/24/21 05/24/21 Range/Units 15:24 15:24 15:24 WBC 8.67 (4.0-11.0) K/uL RBC 4.14 L (4.50-5.90) M/uL Hgb 12.2 L (13.0-17.0) g/dL Hct 35.1 L (38.0-50.0) % MCV 84.8 (80.0-98.0) fL MCH 29.5 (27.0-32.0) pg MCHC 34.8 (31.0-37.0) g/dL RDW Std Deviation 38.3 (28.0-62.0) fl RDW Coeff of Thien 13 (11.0-15.0) % Plt Count 428 H (150-400) K/uL MPV 9.40 (7.40-12.00) fL Add Manual Diff YES Neutrophils % (Manual) 90 H (48.0-80.0) % Lymphocytes % (Manual) 5 L (16.0-40.0) % Monocytes % (Manual) 5 (0.0-15.0) % Absolute Seg Neuts 7.8 H (1.4-5.7) Lymphocytes # (Manual) 0.4 L (0.6-2.4) Monocytes # (Manual) 0.4 (0.0-0.8) INR APTT 25.2 (18.6-31.3) SEC Sodium 139 (136-148) mmol/L Potassium 4.1 (3.5-5.1) mmol/L Chloride 106 (98-107) mmol/L Carbon Dioxide 18.2 L (21.0-32.0) mmol/L BUN 23 H (7.0-18.0) mg/dL Creatinine 1.3 (0.8-1.3) mg/dL Est Cr Clr Drug Dosing 57.69 mL/min Estimated GFR (MDRD) 54.9 ml/min Glucose 291 H (74-106) mg/dL Calcium 8.2 L (8.5-10.1) mg/dL Total Bilirubin 0.4 (0.2-1.0) mg/dL AST 78 H (15-37) IU/L ALT 121 H (14-63) IU/L Alkaline Phosphatase 116 (46-116) U/L Total Protein 6.4 (6.4-8.2) g/dL Albumin 2.5 L (3.4-5.0) g/dL Globulin 3.9 (2.6-4.0) g/dL Albumin/Globulin Ratio 0.6 L (0.9-1.6) 05/24/21 Range/Units 15:24 WBC (4.0-11.0) K/uL RBC (4.50-5.90) M/uL Hgb (13.0-17.0) g/dL Hct (38.0-50.0) % MCV (80.0-98.0) fL MCH (27.0-32.0) pg MCHC (31.0-37.0) g/dL RDW Std Deviation (28.0-62.0) fl RDW Coeff of Thien (11.0-15.0) % Plt Count (150-400) K/uL MPV (7.40-12.00) fL Add Manual Diff Neutrophils % (Manual) (48.0-80.0) % Lymphocytes % (Manual) (16.0-40.0) % Monocytes % (Manual) (0.0-15.0) % Absolute Seg Neuts (1.4-5.7) Lymphocytes # (Manual) (0.6-2.4) Monocytes # (Manual) (0.0-0.8) INR 0.97 APTT (18.6-31.3) SEC Sodium (136-148) mmol/L Potassium (3.5-5.1) mmol/L Chloride (98-107) mmol/L Carbon Dioxide (21.0-32.0) mmol/L BUN (7.0-18.0) mg/dL Creatinine (0.8-1.3) mg/dL Est Cr Clr Drug Dosing mL/min Estimated GFR (MDRD) ml/min Glucose (74-106) mg/dL Calcium (8.5-10.1) mg/dL Total Bilirubin (0.2-1.0) mg/dL AST (15-37) IU/L ALT (14-63) IU/L Alkaline Phosphatase (46-116) U/L Total Protein (6.4-8.2) g/dL Albumin (3.4-5.0) g/dL Globulin (2.6-4.0) g/dL Albumin/Globulin Ratio (0.9-1.6) Meds: Medications Generic Name Dose Route Start Last Admin Trade Name Freq PRN Reason Stop Dose Admin Sodium Chloride 10 ml 05/24/21 15:13 05/24/21 15:27 Sodium Chloride 0.9% 10 Ml Syringe FLUSH 10 ml ASDIRECTED PRN Administration Keep Vein Open Sodium Chloride 2.5 ml 05/24/21 15:13 05/24/21 15:27 Sodium Chloride 0.9% 2.5 Ml Syringe FLUSH 2.5 ml ASDIRECTED PRN Administration Keep Vein Open Discontinued Medications Generic Name Dose Route Start Last Admin Trade Name Freq PRN Reason Stop Dose Admin Iopamidol 74 ml 05/24/21 16:38 05/24/21 16:39 Iopamidol 755 Mg/Ml 500 Ml Multipack Bottle IVPUSH 05/24/21 16:39 74 ml ONETIME ONE Administration Departure - Departure Time of Disposition: 17:47 Disposition: Home, Self-Care 01 Condition: Good Clinical Impression: COVID-19 virus infection, Hemoptysis - Discharge Information Instructions: Hemoptysis, COVID-19 Frequently Asked Questions Referrals: PCP,None [Primary Care Provider] - Forms: ED Department Discharge Additional Instructions: You were seen and evaluated in the ER today secondary to episodes of coughing up blood. This is most likely secondary to the inflammation resulting from the Covid infection. This will cause you to have frequent episodes of coughing which can sometimes irritate your bronchioles resulting in some episodes of blood in your sputum. The CT scan not reveal any significant abnormalities. Your blood tests were all within normal limits. Please continue medications as prescribed to you by Dr. Mattson. Please make an appointment see your family doctor within the week for reevaluation. The following information is given to patients seen in the emergency department who are being discharged to home. This information is to outline your options for follow-up care. We provide all patients seen in our emergency department with a follow-up referral. The need for follow-up, as well as the timing and circumstances, are variable depending upon the specifics of your emergency department visit. If you don't have a primary care physician on staff, we will provide you with a referral. We always advise you to contact your personal physician following an emergency department visit to inform them of the circumstance of the visit and for follow-up with them and/or the need for any referrals to a consulting specialist. The emergency department will also refer you to a specialist when appropriate. This referral assures that you have the opportunity for follow-up care with a specialist. All of these measure are taken in an effort to provide you with optimal care, which includes your follow-up. Under all circumstances we always encourage you to contact your private physician who remains a resource for coordinating your care. When calling for follow-up care, please make the office aware that this follow-up is from your recent emergency room visit. If for any reason you are refused follow-up, please contact the [facility] Emergency Department at and asked to speak to the emergency department charge nurse. [facility] [address] [place] [id number] [facility] [address] [place] [id number] Sepsis Event Note (ED) - Evaluation Sepsis Screening Result: No Definite Risk - Focused Exam Vital Signs: Vital Signs Temp Pulse Resp BP Pulse Ox 05/24/21 17:12 70 16 152/72 H 94 L 05/24/21 14:56 97.6 F 81 19 163/82 H 93 L - My Orders Last 24 Hours: My Active Orders 05/24/21 15:13 Sodium Chloride 0.9% [Saline Flush] 10 ml FLUSH ASDIRECTED PRN Sodium Chloride 0.9% [Saline Flush] 2.5 ml FLUSH ASDIRECTED PRN Saline Lock Insert [OM.PC] Stat - Assessment/Plan Last 24 Hours: My Active Orders 05/24/21 15:13 Sodium Chloride 0.9% [Saline Flush] 10 ml FLUSH ASDIRECTED PRN Sodium Chloride 0.9% [Saline Flush] 2.5 ml FLUSH ASDIRECTED PRN Saline Lock Insert [OM.PC] Stat
[2021-05-24 15:55] LABS: CARBON DIOXIDE,CO2 18.2 mmol/L (21.0-32.0); POTASSIUM,K 4.1 mmol/L (3.5-5.1)
[2021-05-24] MEDS ORDERED: Iopamidol 755 MG/ML 500 ML Multipack Bottle IVPUSH ONE (16:38)
--- NOTE | 2021-05-24 17:22 | CT ---
INDICATION: Mild disease post COVID TECHNIQUE: CT chest pulmonary angiogram acquired with IV contrast. 74 cc Isovue 370 COMPARISON: None FINDINGS: Cardiovascular structures: Normal vascular enhancement of the pulmonary arteries, no sign of pulmonary embolism. Heart size is normal. No sign of aneurysm or dissection in the thoracic aorta. Mediastinum and micah: Mediastinal adenopathy measuring up to 1.7 centimeters. Lungs: Large bilateral areas of ground-glass appearance and consolidations consistent with COVID pneumonia. Pleura and pericardium: No effusions. Chest wall and axilla: No mass or adenopathy. Bones: Degenerative changes thoracic spine. Upper abdomen: Unremarkable. IMPRESSION: No evidence of pulmonary embolus. Diffuse bilateral areas of ground-glass appears in consolidations consistent with COVID pneumonia. Mediastinal adenopathy measuring up to 1.7 centimeters. Please note that all CT scans at this facility use dose modulation, iterative reconstruction, and/or weight-based dosing when appropriate to reduce radiation dose to as low as reasonably achievable. Dictated by Wilver Flannery MD @ 05/24/2021 5:19:[address] Wilver Flannery @ May 24 2021 5:19PM
== END 2021-05-24 17:56 | disposition home or self-care (01) ==
LOC: MW.ED 14:43
DX: U07.1 COVID-19 (principal); R04.2 Hemoptysis; E78.00 Pure hypercholesterolemia, unspecified; I10 Essential (primary) hypertension; Z79.82 Long term (current) use of aspirin; Z79.899 Other long term (current) drug therapy
CPT/HCPCS: 36415; 71275; 80053; 85025; 85610; 85730; 99285; Q9967; 99284